=== PATIENT | female | born 1990 | race African-American/Black ===

== ENCOUNTER 2019-10-26 10:56 | Inpatient (IN) | payer OTHER ==
[~2019-10-26] VITALS: Ht 157.5 cm; Wt 75.4 kg
[2019-10-26] MEDS ORDERED: SODIUM CHLORIDE 0.9% 1,000 ML IV ONE (11:16)
[2019-10-26 11:29] LABS: Basophils # (auto) 0 10 ^3/uL (0-0.2); Basophils % (auto) 0.5 % (0.0-2.0); Eosinophils # (auto) 0.1 10 ^3/uL (0-0.8); Eosinophils % (auto) 1.4 % (0.0-7.0); Hematocrit 40.1 % (36.0-46.0); Hemoglobin 12.7 g/dL (12.2-16.2); Lymphocytes # (auto) 0.8 10 ^3/uL (0.4-5.4); Lymphocytes % (auto) 9.1 % (10.0-50.0); Mean Corpuscular Hemoglobin 27.5 pg (28.0-32.0); Mean Corpuscular Hgb Conc. 31.8 g/dL (32.0-36.0); Mean Corpuscular Volume 86.5 fL (80.0-100.0); Monocytes # (auto) 0.3 10 ^3/uL (0-1.3); Monocytes % (auto) 3.9 % (0.0-12.0); Neutrophils # (auto) 7.3 10 ^3/uL (1.6-8.6); Neutrophils % (auto) 85.1 % (37.0-80.0); Nucleated Red Blood Cells % 0.1 %; Platelet Count (auto) 228 10^3/uL (140-450); Red Blood Cells 4.63 10^6/uL (4.0-5.20); Red Cell Distribution Width 16.4 % (11.8-14.3); White Blood Cell 8.6 10^3/uL (4.4-10.8)
[2019-10-26] MEDS ORDERED: PANTOPRAZOLE 40 MG/10 ML VIAL INJ IV ONE (11:30)
[2019-10-26] MEDS ORDERED: MORPHINE SULFATE 4 MG/ML SYR/VIAL IV ONE (11:30)
[2019-10-26] MEDS ORDERED: PROCHLORPERAZINE EDISYLATE 5 MG/ML 2ML VIAL IV ONE (11:30)
[2019-10-26 11:49] LABS: Albumin 3.7 g/dL (3.4-5.0); Calcium 9.2 mg/dL (8.5-10.1)
[2019-10-26 11:52] LABS: BUN/Creatinine Ratio 5.5; Bilirubin, Total 0.6 mg/dL (0.2-1.0); Total Protein 7.4 g/dL (6.4-8.2)
[2019-10-26 12:00] LABS: Potassium 2.8 mmol/L (3.5-5.1)
[2019-10-26] MEDS ORDERED: POTASSIUM CHL 20MEQ/100ML 100 ML IV ONE (13:30)
[2019-10-26] MEDS ORDERED: IOHEXOL 300 MG/ML 100ML BOTTLE IJ ONE (15:28)
[2019-10-26] MEDS ORDERED: HYDROcodone-ACET 5/325MG TAB PO PRN (15:30)
[2019-10-26] MEDS ORDERED: NITROGLYCERIN 0.4 MG SL TAB SL PRN (15:30)
[2019-10-26] MEDS ORDERED: MORPHINE SULF INJ 2 MG/ML SYRINGE 1ML IV PRN (15:30)
[2019-10-26] MEDS: SOD CHL 0.9%/ KCL 40MEQ 1,000 ML IV SCH (16:45)
[2019-10-26] MEDS: PROMETHAZINE HCL 25 MG/ML 1ML IV PRN ×2 (16:45→23:14)
[2019-10-26] MEDS: MORPHINE SULF INJ 2 MG/ML SYRINGE 1ML IV PRN ×2 (16:45→23:20)
--- NOTE | 2019-10-26 19:00 | NUR ---
OPENING NOTE Received report from day shift RN. patient is A&O X's 4 with no s/s of distress and reports no pain or nausea at this time. Educated patient on POC and to use call light when in need of assistance and when needing to get up to ambulate. Patient verbalized understanding. Bed is in lowest/locked position with side rails up X's 2 and call light is within reach of patient. Will continue care.
[2019-10-26] MEDS: metroNIDAZOLE 500MG/100ML 100 ML IV SCH (21:54)
[2019-10-26 22:00] VITALS: BP 122/64
[2019-10-27] MEDS: SOD CHL 0.9%/ KCL 40MEQ 1,000 ML IV SCH ×2 (04:50→18:10)
[2019-10-27 05:00] VITALS: BP 118/70
[2019-10-27] MEDS: metroNIDAZOLE 500MG/100ML 100 ML IV SCH ×3 (05:23→22:24)
[2019-10-27 06:49] LABS: Basophils # (auto) 0 10 ^3/uL (0-0.2); Basophils % (auto) 0.2 % (0.0-2.0); Eosinophils # (auto) 0.1 10 ^3/uL (0-0.8); Eosinophils % (auto) 1.5 % (0.0-7.0); Hematocrit 34.9 % (36.0-46.0); Hemoglobin 11.4 g/dL (12.2-16.2); Lymphocytes # (auto) 1.3 10 ^3/uL (0.4-5.4); Lymphocytes % (auto) 18.4 % (10.0-50.0); Mean Corpuscular Hemoglobin 27.7 pg (28.0-32.0); Mean Corpuscular Hgb Conc. 32.8 g/dL (32.0-36.0); Mean Corpuscular Volume 84.4 fL (80.0-100.0); Monocytes # (auto) 0.4 10 ^3/uL (0-1.3); Neutrophils # (auto) 5.4 10 ^3/uL (1.6-8.6); Neutrophils % (auto) 73.9 % (37.0-80.0); Nucleated Red Blood Cells % 0.1 %; Platelet Count (auto) 197 10^3/uL (140-450); Red Blood Cells 4.13 10^6/uL (4.0-5.20); Red Cell Distribution Width 15.9 % (11.8-14.3); White Blood Cell 7.3 10^3/uL (4.4-10.8)
[2019-10-27 07:06] LABS: Albumin 2.8 g/dL (3.4-5.0); BUN/Creatinine Ratio 4.2; Calcium 8.5 mg/dL (8.5-10.1); Magnesium 1.6 mg/dL (1.6-2.6); Potassium 3.4 mmol/L (3.5-5.1)
[2019-10-27 07:09] LABS: Bilirubin, Total 0.4 mg/dL (0.2-1.0)
--- NOTE | 2019-10-27 07:20 | NUR ---
Opening shift note Assumed care of patient. A&Ox4, respirations even and non-labored with no s/s of distress. IV flushing, patent, intact. Discussed POC with patient who verbalized understanding. Bed lowered/locked with 2 side rails up. Will continue to monitor.
[2019-10-27 09:00] VITALS: BP_SYST 121; BP_SYST 94; BP_DIAS 50; BP_DIAS 77
--- NOTE | 2019-10-27 11:00 | NUR ---
Patient Smoking Patient requested to go outside to smoke, explained smoking policy and had patient sign smoking policy paperwork. Patient verbalized understanding.
[2019-10-27] MEDS ORDERED: POTASSIUM CHL 20 Meq TABLET PO ONE (12:45)
[2019-10-27] MEDS ORDERED: METR500T PO (12:47)
[2019-10-27] MEDS ORDERED: LEVO-28 PO (12:47)
[2019-10-27 13:00] VITALS: BP 128/78
--- NOTE | 2019-10-27 14:36 | NUR ---
Pain Patient c/o 7/10 abdominal pain. Administered [place] per EMAR, will continue to monitor.
[2019-10-27] MEDS: MORPHINE SULF INJ 2 MG/ML SYRINGE 1ML IV PRN (15:18)
[2019-10-27] MEDS: PROMETHAZINE HCL 25 MG/ML 1ML IV PRN (15:18)
--- NOTE | 2019-10-27 15:35 | NUR ---
Pain reassessed Patient c/o 05/20 abdominal pain. Administered morphine and phenergen per EMAR. Will continue to monitor.
[2019-10-27 16:55] LABS: Urine Bacteria NONE SEEN /hpf (None Seen); Urine Blood 2+ /uL (Negative); Urine Mucus FEW (None Seen); Urine Specific Gravity 1.018 (1.001-1.035); Urine WBC 4 /hpf (0 - 5)
[2019-10-27 16:55] LABS: Amylase 47 U/L (25-115); Lipase 69 U/L (73-393)
[2019-10-27 17:00] VITALS: BP 153/80
--- NOTE | 2019-10-27 17:00 | NUR ---
Multiple IV attempts Patient is complaining that IV placed is leaking. Upon flushing IV and assessing site, there is no leakage or signs/symptoms of infiltration. Multiple RNs have attempted to place IV, however, due to patient's movement and noncompliance no successful attempts done at this time. Will not remove only working IV at this time.
[2019-10-27 17:11] LABS: Alcohol, Urine < 3.0 mg/dL (0-5); Amphetamine Screen, Urine NEGATIVE (NEGATIVE); Barbiturate Scree,Urine NEGATIVE (NEGATIVE); Benzodiazephine Screen, Urine NEGATIVE (NEGATIVE); Cannabinoid Screen, Urine POSITIVE (NEGATIVE); Cocaine Screen, Urine NEGATIVE (NEGATIVE); Opiate Scree,Urine POSITIVE (NEGATIVE); Phencyclidine Screen, Urine NEGATIVE (NEGATIVE)
--- NOTE | 2019-10-27 18:36 | NUR ---
Smoke/IV pulled out Patient came to station at this time to let this RN know that she removed IV. Patient points to area and states, "I took it out." No distress noted to site at this time. Chace wrapped around area.
--- NOTE | 2019-10-27 18:37 | NUR ---
Smoke Patient to go smoke at this time.
--- NOTE | 2019-10-27 19:00 | NUR ---
Closing Shift Note Patient ambulating in hallways complaining of pain. Patient aware that without IV access, unable to give medication at this time. Patient states she "needs to take a break from IV attempts." Report given. Will endorse care to the [employer] special [employer] teacher RN.
--- NOTE | 2019-10-27 20:09 | NUR ---
Smoke Patient to go smoke at this time.
[2019-10-27] MEDS: HYDROmorphone HCL 2 MG/ML VL IV PRN (20:39)
[2019-10-27 22:00] VITALS: BP 150/82
[2019-10-28] MEDS: HYDROmorphone HCL 2 MG/ML VL IV PRN ×2 (01:38→05:50)
[2019-10-28] MEDS: SOD CHL 0.9%/ KCL 40MEQ 1,000 ML IV SCH ×2 (01:38→21:25)
[2019-10-28 05:00] VITALS: BP 128/78
[2019-10-28] MEDS: metroNIDAZOLE 500MG/100ML 100 ML IV SCH ×3 (05:24→22:38)
--- NOTE | 2019-10-28 07:31 | NUR ---
Provided report to day RN. Notified RN of patient has IV access now and currently on fluids and has relief with dilauded IV. Currently patient is resting in bed with no signs of distress at this time.
--- NOTE | 2019-10-28 07:45 | NUR ---
Opening shift note Patient A&Ox4 with respirations even and non-labored with no s/s of distress. Discussed POC with patient. Patient ambulating room. Bed in lowest/locked position with 2 side rails up. Call light within reach. Will continue to monitor.
--- NOTE | 2019-10-28 08:43 | NUR ---
Smoke Patient has left the floor to go smoke at this time. Patient states she feels, "better."
[2019-10-28 09:00] VITALS: BP 126/88
--- NOTE | 2019-10-28 09:05 | NUR ---
Patient returned from smoking
[2019-10-28 13:00] VITALS: BP 121/84
--- NOTE | 2019-10-28 14:00 | NUR ---
Rounding Patient sitting up in bed A&Ox4 requesting juice/water. Supplied ice water and juice boxes. Patient resting comfortably, will continue to monitor.
[2019-10-28 16:48] VITALS: BP 124/72
--- NOTE | 2019-10-28 19:39 | NUR ---
Closing Shift Note Patient resting in bed. No distress noted. Patient verbalizes feeling much better with no pain. Patient would like to go home. Had GI consult recalled this evening. Report given. Will endorse care to the overnight stocker RN.
--- NOTE | 2019-10-28 20:00 | NUR ---
Opening Shift Note Assumed care of patient, awake and alert. No S/S of distress/SOB or pain. Instructed on POC and to call for assist PRN, will continue to monitor for changes Q1hr and PRN.
[2019-10-28 21:00] VITALS: BP 121/81
[2019-10-29 05:00] VITALS: BP 127/86
[2019-10-29] MEDS: metroNIDAZOLE 500MG/100ML 100 ML IV SCH ×2 (06:07→14:12)
[2019-10-29 06:49] LABS: Basophils # (auto) 0.1 10 ^3/uL (0-0.2); Basophils % (auto) 1.1 % (0.0-2.0); Eosinophils # (auto) 0.1 10 ^3/uL (0-0.8); Eosinophils % (auto) 2.4 % (0.0-7.0); Hematocrit 37.9 % (36.0-46.0); Hemoglobin 12.4 g/dL (12.2-16.2); Lymphocytes # (auto) 1.7 10 ^3/uL (0.4-5.4); Lymphocytes % (auto) 29.4 % (10.0-50.0); Mean Corpuscular Hemoglobin 27.9 pg (28.0-32.0); Mean Corpuscular Hgb Conc. 32.8 g/dL (32.0-36.0); Monocytes # (auto) 0.4 10 ^3/uL (0-1.3); Monocytes % (auto) 7.5 % (0.0-12.0); Neutrophils # (auto) 3.5 10 ^3/uL (1.6-8.6); Neutrophils % (auto) 59.6 % (37.0-80.0); Nucleated Red Blood Cells % 0.2 %; Platelet Count (auto) 209 10^3/uL (140-450); Red Blood Cells 4.46 10^6/uL (4.0-5.20); Red Cell Distribution Width 16.8 % (11.8-14.3); White Blood Cell 5.8 10^3/uL (4.4-10.8)
[2019-10-29 07:08] LABS: Potassium 3.7 mmol/L (3.5-5.1)
[2019-10-29 07:11] LABS: BUN/Creatinine Ratio 3.4; Calcium 8.8 mg/dL (8.5-10.1)
--- NOTE | 2019-10-29 07:15 | NUR ---
Opening Shift Note Assumed care of patient, awake and alert. No S/S of distress/SOB or pain. Instructed on POC and to call for assist PRN, will continue to monitor for changes Q1hr and PRN. Fall precautions in place per safety protocol.
[2019-10-29 08:00] VITALS: BP 128/89
[2019-10-29 09:00] VITALS: BP 156/91
[2019-10-29] MEDS: SOD CHL 0.9%/ KCL 40MEQ 1,000 ML IV SCH (10:10)
--- NOTE | 2019-10-29 10:40 | NUR ---
GI at bedside MD Lucio at bedside, aware of patient status. New orders to advance diet to full liquid received, read back, verified and carried out. Per MD Lucio patient is cleared per DC. Will cont to monitor patient.
[2019-10-29] MEDS: PROMETHAZINE HCL 25 MG/ML 1ML IV PRN (10:57)
[2019-10-29] MEDS: HYDROmorphone HCL 2 MG/ML VL IV PRN (10:57)
[2019-10-29 13:00] VITALS: BP 141/84
--- NOTE | 2019-10-29 15:00 | NUR ---
Hospitalist at bedside. MD Pritchett at bedside, aware of patient status. Orders for discharge received, will carry out new orders.
[2019-10-29 16:09] VITALS: BP 141/84
[2019-10-29 16:16] VITALS: BP 134/90
--- NOTE | 2019-10-29 16:37 | NUR ---
Discharge instructions given as ordered. Encourage to follow up with PMD as instructed. All questions and concerns addressed. Patient verbalized understanding. Medication reconciliation form completed and copy given to patient. IV removed with catheter intact, pressure dressing applied. Patient taken to vehicle via wheelchair with all personal belongings, accompanied by staff. No distress noted at time of departure.
== END 2019-10-29 16:35 | disposition home or self-care (01) | DRG 249 ==
LOC: ER 10:56 → OVERFLOW 10:57 → WEST WING 17:41
PROVIDERS: ADMIT Nurse Practitioner Acute Care; ATTEND Internal Medicine
DX: A08.8 Other specified intestinal infections (principal); E66.9 Obesity, unspecified; E87.6 Hypokalemia; F17.210 Nicotine dependence, cigarettes, uncomplicated; Z68.30 Body mass index [BMI] 30.0-30.9, adult; F12.90 Cannabis use, unspecified, uncomplicated
CPT/HCPCS: 36415; 74177; 80048; 80053; 80307; 81001; 82150; 83690; 83735; 84702; 85025; 96361; 96365; 96375; C9113; G0378; J3480; J3490